=== PATIENT | male | born 1950 | race Caucasian/White ===

== ENCOUNTER → 2020-12-27 09:00 | Outpatient (CLI) | payer BC, SELFPAY ==
--- NOTE | ~2020-12-27 | CT_ITS ---
EXAMINATION: CT sinus wo con DATE: 12/27/2020 09:14 INDICATION: Chronic rhinitis TECHNIQUE: Computed tomography (CT) of the paranasal sinuses was performed without intravenous contra st. The dose-length product was 284.43 mGy-cm. Automated exposure control and iterative reconstructio n technique were employed. COMPARISON: No prior studies for comparison. FINDINGS: There is mild mucosal thickening of the ethmoid sinuses at the ostiomeatal units. Ostiomeat al units are patent. No air-fluid levels. No mucoperiosteal reaction. Mastoids are pneumatized. No si gnificant nasal septal deviation. IMPRESSION: 1. Mild ethmoid sinus disease. Reviewed, dictated and finalized at location B. [employer]
== END ==
PROVIDERS: PCP Family Medicine; Visit Provider Allergy & Immunology
DX: J31.0 Chronic rhinitis (principal); J32.2 Chronic ethmoidal sinusitis
CPT/HCPCS: 70486

== ENCOUNTER → 2022-02-12 12:02 | Outpatient (CLI) | payer BC, SELFPAY ==
--- NOTE | ~2022-02-12 | XR_ITS ---
XR abdomen/kub 1V DATE: 02/12/2022 12:28 INDICATION: Abdominal pain TECHNIQUE: 2 supine AP views COMPARISON: 10/03/2015 KUB 08/30/2015 CT abdomen pelvis FINDINGS: There is a prominent amount of fecal material in the colon, particularly the ascending colo n, hepatic flexure, transverse colon, splenic flexure and descending colon. No apparent bowel obstruc tion. The psoas shadows are intact. No visceromegaly is evident. Chronic a shell calcification left upper quadrant, possibly residual splenic tissue with calcificatio n. Stable since 08/30/2015 CT abdomen examination. Severe degenerative disc disease of the lumbar and lumbosacral spine. Old fracture deformities of the left superior inferior pubic rami. IMPRESSION: Very prominent amount of fecal material in the colon Reviewed, dictated and finalized at Location A. Reviewed, dictated and finalized at location A.
== END ==
PROVIDERS: PCP Family Medicine; Visit Provider Physician Assistant Medical
DX: R10.9 Unspecified abdominal pain (principal)
CPT/HCPCS: 74018

== ENCOUNTER → 2022-02-17 14:18 | Outpatient (CLI) | payer BC, SELFPAY ==
--- NOTE | ~2022-02-17 | CT_ITS ---
EXAMINATION: CT abdomen pelvis wo con DATE: 02/17/2022 14:38 INDICATION: Left flank pain. TECHNIQUE: Computed tomography (CT) of the abdomen and pelvis was performed without intravenous contr ast. Automated exposure control and iterative reconstruction technique were employed. The dose-length product was 759.95 mGy-cm. COMPARISON: CT abdomen and pelvis 08/30/2015 FINDINGS: The visualized portions of the lung bases demonstrate mild atelectasis. Partially visualize d is a chronic 17 mm nodule in right lower lobe, likely benign. Right lung calcifications are consist ent with old granulomatous disease. No pleural effusion. The heart size is normal. There are coronary artery calcifications. No pericardial effusion. The liver is normal. The gallbladder is decompressed . The spleen is absent. A chronic rim-calcified mass in left upper quadrant may be old fat necrosis o r a splenule with old injury. The pancreas, adrenal glands, and right kidney are normal. There is a 4 mm stone in left kidney. There is mild left hydronephrosis and hydroureter. There is a 6 mm stone in proximal left ureter. The prostate is mildly enlarged. There is a left inguinal hernia containing fa t. There are no dilated loops of bowel. The appendix is not visualized. There are no pathologically e nlarged lymph nodes. There is no free intraperitoneal fluid. There are old healed fractures of left s uperior and inferior pubic rami. There is severe lumbar spondylosis. IMPRESSION: 1. 6 mm stone in proximal left ureter with mild left hydronephrosis and proximal hydroureter. 2. Nonobstructing left kidney stone. 3. Left inguinal hernia containing fat. Reviewed, dictated and finalized at location A. IMPRESSION: 1. 6 mm stone in proximal left ureter with mild left hydronephrosis and proxima l hydroureter. 2. Nonobstructing left kidney stone. 3. Left inguinal hernia containing fat.
== END ==
PROVIDERS: PCP Family Medicine; Visit Provider Physician Assistant Medical
DX: N20.2 Calculus of kidney with calculus of ureter (principal); K40.90 Unilateral inguinal hernia, without obstruction or gangrene, not specified as recurrent
CPT/HCPCS: 74176

== ENCOUNTER 2022-02-26 09:54 | Outpatient (CLI) | payer BC, SELFPAY ==
--- NOTE | 2022-02-26 09:30 | ECG_ITS ---
Measurements Intervals [place] Rate: 63 P: 90 MT: 136 QRS: -10 QRSD: 98 T: 39 QT: 378 QTc: 388 Interpretive Statements SINUS RHYTHM NORMAL ECG NO PREVIOUS ECG AVAILABLE FOR COMPARISON Electronically Signed On 02-26-2022 15:54:47 CDT by Praveen Gray M.D.
== END 2022-02-26 09:55 | disposition home or self-care (01) ==
LOC: ANHSURGERY 09:58
PROVIDERS: PCP Family Medicine; Visit Provider Urology
DX: Z01.818 Encounter for other preprocedural examination (principal); N20.0 Calculus of kidney; I10 Essential (primary) hypertension
CPT/HCPCS: 87086; 93005

== ENCOUNTER → 2022-03-01 10:13 | Outpatient (CLI) | payer BC, SELFPAY ==
--- NOTE | ~2022-03-01 | XR_ITS ---
EXAM: XR abdomen/kub 1V HISTORY: Left ureteral stone COMPARISON: CT abdomen and pelvis 02/17/2022. FINDINGS: Left-sided 6 cm stone remains in the left ureter having advanced several centimeters, now at the pelvic brim. The nonobstructing left renal stone is less well seen but likely stable. Chronic left upper quadrant calcification. Multiple pelvic phleboliths. Severe degenerative changes in the isidro mbar spine. IMPRESSION: Slight forward movement of the 6 mm left ureteral stone, now at the pelvic brim. Reviewed, dictated and finalized at location K. IMPRESSION: Slight forward movement of the 6 mm left ureteral stone, now at the pelvic brim .
== END ==
PROVIDERS: PCP Family Medicine; Visit Provider Urology
DX: N20.1 Calculus of ureter (principal)
CPT/HCPCS: 74018

== ENCOUNTER 2022-03-04 00:30 | Day surgery (SDC) | payer BC, SELFPAY ==
[2022-02-25 12:55] VITALS: BMI 28.0
--- NOTE | 2022-02-25 13:20 | PC.NURSE ---
Report to the Outpatient Waiting Room, entrance under the green pavilion located off [facility], at time _0930_ on date _03/04/22_. OR Time: _1130_. - You and your visitor will be asked a series of questions to screen for COVID 19 for your protection. - A mask is required within the hospital. One visitor will be allowed to accompany the patient into the hospital. Patients visitor will be instructed to remain with patient at all times or leave the building. We will allow the visitor to come back to the postoperative area when patient is ready. Preoperative COVID Testing Requirements: NONE Patients may have clear liquids (water, carbonated beverages, clear teas, apple juice) until 3 hours prior to surgery (0830 AM) with a maximum of 20 ounces. - No food from midnight until time of surgery Take the following medications with a SIP of water the morning of surgery: _NASAL SPRAY_ Medications to discontinue per ANESTHESIA __FOLIC ACID, 3 DAYS PRIOR TO SURGERY, Date to take last dose 02/28/22_ Please no deodorant, or body powder the day of surgery. No jewelry (including any body piercings) or valuables the day of surgery, leave them at home. Please take a shower or bath the night before, or the morning of, surgery with an antibacterial soap. Wear comfortable, loose fitting clothing. - Jewelry must be removed prior to entering the operating room. Rings and piercings that are not removed may be cut off. - The hospital will not accept responsibility for valuables. - Please leave all valuables, including medications, at home the day of surgery. If you are going home after surgery, a licensed sprinkler driver must drive you home. - NO public transportation without another adult. - We recommend that an adult stay with you for 24 hours following discharge. - We also recommend that you do not drive, make important decision, drink alcoholic beverages, or take any drugs that were not prescribed by your health care provider for at least 24 hours after your discharge time. Follow any additional instructions given to you from your surgeon. Telephone instructions given to ____PT and asked if any additional questions and then verbalized understanding. Patient advised to call surgeon office or pre surgery nurse liaison [phone] if any additional questions.
[2022-03-04] VITALS (8 sets, daily range): BP systolic 111–150; BP diastolic 56–82; PULSE 57–67; RESP 14–18; TEMP 36.2–36.4; O2SAT 97–100
--- NOTE | ~2022-03-04 | XR_ITS ---
EXAMINATION: XR retrograde pyelo w/stent LT EXAM DATE: 03/04/2022 12:02 INDICATION: Left ureteral stone. TECHNIQUE: Fluoroscopy used during XR retrograde pyelo w/stent LT performed by Dr. Edison whiteside MD, urologist. The radiologist Jason Andrade M.D. dictating this report of the image(s) availabl e was not present for the procedure. Total fluoroscopic time of 25 seconds. The DAP for this proced ure was 0.35 mGym2. A total of 9 images sent to PACS from the exam. Prior study from 2014 was contr alateral side. FINDINGS: Left ureter was cannulated, injected. There is mild left hydroureteronephrosis and bifid r enal pelvis. A double-J ureteral stent was placed. Correlate with procedure note. IMPRESSION: Mild left hydroureteronephrosis. Stent in position. Reviewed, dictated and finalized at location A.
--- NOTE | 2022-03-04 09:10 | WPDHPUPDATE1 ---
History and Physical Update Update Date/Time: 03/04/22 09:10 History and Physical has been reviewed, including an updated exam of the patient. There are NO changes in the patient's condition. Risks, benefits, and alternatives have been discussed and questions answered. Patient agrees to proceed with procedure. Proceed with cystoscopy, left retrograde pyelogram, left ureteroscopy with stone extraction, possible laser and stent placement
[2022-03-04] MEDS: LACTATED RINGERS 1,000 ML 30 ML IV CONT (10:45)
--- NOTE | 2022-03-04 10:48 | SUR.PREOP ---
pt and spouse informed delay in procodure
--- NOTE | 2022-03-04 10:49 | WPDANESEPPF ---
Anes - Initial Pre Proc Eval Procedure: Operation Date: 03/04/22 11:30 Proposed Procedures p Cystoscopy, Left Ureteroscopy, Left Retrograde Pyelogram, Stone Extraction, Left Stent Placement - Edison Bragg MD s Possible Holmium Laser Procedure - Edison Bragg MD Date/Time: 03/04/22 10:49 Surgeon: Edison Bragg MD Pre Op Diagnosis: left renal stone Patient Data Age: 71 Gender: M Height: 1.75 m Weight: 86.36 kg Allergies Allergy/AdvReac Type Severity Reaction Status Date / Time metformin Allergy Intermediate ,drop in Verified 03/04/22 10:29 blood suger morphine Allergy Mild Nausea Verified 03/04/22 10:29 Home Medications Medication Instructions Recorded Confirmed Type coenzyme Q10 100 mg capsule 100 mg PO DAILY 02/16/20 03/04/22 History azelastine 137 mcg (0.1 %) nasal See Rx Instructions .ROUTE 04/01/21 03/04/22 Rx spray aerosol .COMPLEX #90 spray sulfasalazine 500 mg tablet See Rx Instructions .ROUTE 04/01/21 03/04/22 Rx .COMPLEX #360 tablet folic acid 1 mg tablet 1 mg PO DAILY #90 tablet 09/19/21 03/04/22 Rx trazodone 100 mg tablet 200 mg PO .QHS #180 tablet 09/19/21 03/04/22 Rx zolpidem 10 mg tablet 10 mg PO QHS #90 tablet 10/28/21 03/04/22 Rx fluticasone propionate 50 See Rx Instructions .ROUTE 01/28/22 03/04/22 Rx mcg/actuation nasal .COMPLEX #16 milliliter spray,suspension lisinopril 2.5 mg tablet See Rx Instructions .ROUTE 01/28/22 03/04/22 Rx .COMPLEX #90 tablet simvastatin 40 mg tablet See Rx Instructions .ROUTE 01/28/22 03/04/22 Rx .COMPLEX #90 tablet ketoconazole 1 applic TOPICAL BID PRN 02/25/22 03/04/22 History pseudoephedrine-guaifenesin See Rx Instructions .ROUTE 02/25/22 03/04/22 History [Mucinex D] .COMPLEX PRN tamsulosin 0.4 mg capsule 0.4 mg PO DAILY #90 cap 02/27/22 03/04/22 Rx aspirin [Adult Low Dose Aspirin] 81 mg PO DAILY 03/04/22 03/04/22 History Patient hx anesthesia problems: none Family hx anesthesia problems: none Results Review: All pre-operative results and documents have been reviewed as part of the pre-operative evaluation. [facility] Past Medical History Medical History Allergic rhinitis Atherosclerotic heart disease of [place] coronary artery without angina pectoris Chronic ulcerative pancolitis Essential (primary) hypertension Hyperlipidemia, unspecified Kidney stone (~10/23/15) right ureteral calculus 8mm Malignant neoplasm of tongue, unspecified Obesity (BMI 30.0-34.9) Obstructive sleep apnea Overweight (BMI 25.0-29.9) Type 2 diabetes mellitus without complications Vasomotor rhinitis Surgical History Surgical History History of appendectomy History of arthroscopy of shoulder (~2000) History of cataract extraction (~2012) History of colonoscopy (~10/03/10) History of tonsillectomy Family History Family History Father No problems noted. Mother Acute myocardial infarction, Onset Age: 51 Coronary artery disease Social History Social History Smoking packs per day: 1 Smoking cigarettes per day: 20.0 Years smoked: 10 Smoking pack-years: 10.00 Second hand tobacco smoke exposure: No Smoking end date: 11/16/93 Alcohol intake: current Alcohol use details: STATES 23 BEERS/MONTH Substance use: never Substance use type: does not use Living arrangements: with family Gender identity (if verbalized by the patient): Male Spiritual care concerns: No Anes - Eval Final PreProcedure Day of Procedure 03/04/22 10:49 Patient weight: overweight Heart: regular rate and rhythm Lungs: clear to auscultation Airway: Mallampati scale class II Neurological: alert and oriented Last oral intake: >/= 8 hours ASA classification: III Anesthetic plan: procee
[2022-03-04 10:56] LABS: Glucose Point of Care 137 mg/dl (65-105)
[2022-03-04] MEDS: ceFAZolin 2 GM/D5W 50 ML 2 GM/50 ML BAG IVPB (11:18)
--- NOTE | 2022-03-04 12:02 | W.PM.PROC2 ---
Procedure Note - Detailed Date of Procedure 03/04/22 Pre-op Diagnosis left ureteral calculus 7 to 8 mm Post-op Diagnosis Same Procedure Performed Cystoscopy, left retrograde pyelogram, left ureteroscopy with holmium laser, stone extraction, left ureteral stent placement 4.8 Filipino contour Surgeon Edison Bragg MD Anesthesia General Description of Procedure Patient is taken the operative suite correctly identified. Once anesthesia was obtained he was placed in dorsal lithotomy position and prepped and draped usual sterile fashion. Twenty-two Filipino scope inserted in the bladder. There are no tumors noted. Left ureteral orifice was cannulated with a guidewire. We dilated the orifice using an 8/10 dilator. Rigid ureteral scope was then inserted. The stone was visualized was too large to retrieved in 1 piece. Using a 273 micron fiber we used the holmium laser to fragment it into multiple pieces. These were retrieved and sent for analysis. Pyelogram was then performed to confirm placement of the stent in the renal pelvis. A 4.8 Filipino contour stent was then placed with the proximal end in the renal pelvis and the distal in the bladder. Bladder was drained. 2% viscous lidocaine was inserted into the urethra the patient is taken recovery stable condition. He will be discharged home and follow-up week's time stent removal. Drains Yes Packing No Pathology Yes Complications No immediate complications Condition Stable Disposition PACU
[2022-03-04 12:15] LABS: Glucose Point of Care 123 mg/dl (65-105)
[2022-03-04] MEDS: fentaNYL CITRATE INJ (*CRX) 100 MCG/2 ML VIAL 25 MCG IV PUSH ×4 (12:38→13:06)
--- NOTE | 2022-03-04 12:40 | SUR.PHASEI ---
Simple mask removed at 1240.
[2022-03-04] MEDS: oxyCODONE HCL (*CRX) 5 MG TAB IR PO (13:36)
== END 2022-03-04 14:28 | disposition home or self-care (01) ==
PROVIDERS: PCP Family Medicine; Visit Provider Urology
PROC: (CPT 52352; principal; 2022-03-04 11:30)
PROC: (CPT 52356; 2022-03-04 11:30)
DX: N20.1 Calculus of ureter (principal); I25.10 Atherosclerotic heart disease of native coronary artery without angina pectoris; I10 Essential (primary) hypertension; E78.5 Hyperlipidemia, unspecified; G47.33 Obstructive sleep apnea (adult) (pediatric); E11.9 Type 2 diabetes mellitus without complications; Z87.891 Personal history of nicotine dependence
CPT/HCPCS: 52356; 74420; 82365; 82948; 88300; A9270; C1769; C2617; J0690; J2405; J2704; J3010; J7120; Q9966

== ENCOUNTER → 2022-08-11 06:59 | Day surgery (SDC) | payer BC, SELFPAY ==
[2022-08-05 13:32] VITALS: BMI 27.3
--- NOTE | 2022-08-11 08:01 | SUR.PREOP ---
Patient states the Gol[place] made him nauseated and he only drank half. Dr Otero requesting to reschedule. New prep instructions for Miralax were given and phone number of the office to reschedule.
== END ==
PROVIDERS: PCP Family Medicine; Visit Provider Internal Medicine Gastroenterology
DX: R19.5 Other fecal abnormalities (principal); Z53.09 Procedure and treatment not carried out because of other contraindication
CPT/HCPCS: 99211; G0463

== ENCOUNTER 2022-09-15 01:35 | Day surgery (SDC) | payer BC, SELFPAY ==
[2022-09-03 11:12] VITALS: BMI 27.4
[2022-09-15 09:06] VITALS: BP 119/71; PULSE 95; RESP 18; TEMP 36.4; O2SAT 97; BMI 27.2
[2022-09-15] MEDS: LACTATED RINGERS 1,000 ML 150 ML IV CONT (09:14)
--- NOTE | 2022-09-15 09:15 | WPDANESEPPF ---
Anes - Initial Pre Proc Eval Procedure: Operation Date: 09/15/22 10:00 Proposed Procedures p Colonoscopy - Wally Otero MD Date/Time: 09/15/22 09:15 Surgeon: Wally Otero MD Pre Op Diagnosis: positive cologuard Patient Data Age: 72 Gender: M Height: 1.73 m Weight: 81.3 kg Last Vital Signs Temp 36.4 C L 09/15/22 09:06 Pulse 95 09/15/22 09:06 Resp 18 09/15/22 09:06 BP 119/71 09/15/22 09:06 Pulse Ox 97 09/15/22 09:06 O2 Del Method Room Air 09/15/22 09:06 Allergies Allergy/AdvReac Type Severity Reaction Status Date / Time metformin Allergy Intermediate ,drop in Verified 09/15/22 09:04 blood suger morphine Allergy Mild Nausea Verified 09/15/22 09:04 Home Medications Medication Instructions Recorded Confirmed Type coenzyme Q10 100 mg capsule 100 mg PO DAILY 02/16/20 09/03/22 History (CoQ-10) trazodone 100 mg tablet 200 mg PO .QHS #180 tabs 09/19/21 09/03/22 Rx tamsulosin 0.4 mg capsule (Flomax) 0.4 mg PO DAILY #90 caps 02/27/22 09/03/22 Rx aspirin 81 mg tablet 81 mg PO DAILY 03/04/22 09/03/22 History zolpidem 10 mg tablet 10 mg PO QHS #90 tabs 04/28/22 09/03/22 Rx azelastine 137 mcg (0.1 %) nasal 1 - 2 spray intranasal Q12H 09/03/22 09/03/22 History spray aerosol fluticasone propionate 50 2 spray intranasal BID 09/03/22 09/15/22 History mcg/actuation nasal spray,suspension ketoconazole 2 % topical cream 1 applic topical BID PRN ALTHETES 09/03/22 09/03/22 History FOOT lisinopril 2.5 mg tablet 2.5 mg PO DAILY 09/03/22 09/03/22 History simvastatin 40 mg tablet 40 mg PO DAILY 09/03/22 09/03/22 History sulfasalazine 500 mg tablet 500 mg PO Q6H 09/03/22 09/03/22 History terbinafine HCl 250 mg tablet 250 mg PO DAILY 09/03/22 09/03/22 History folic acid 1 mg tablet 1 mg PO DAILY #90 tabs 09/12/22 09/15/22 Rx Patient hx anesthesia problems: none Family hx anesthesia problems: none Results Review: All pre-operative results and documents have been reviewed as part of the pre-operative evaluation. [facility] Past Medical History Medical History Allergic rhinitis Atherosclerotic heart disease of [place] coronary artery without angina pectoris Chronic ulcerative pancolitis Essential (primary) hypertension Hyperlipidemia, unspecified Kidney stone (~10/23/15) right ureteral calculus 8mm Malignant neoplasm of tongue, unspecified Obesity (BMI 30.0-34.9) Obstructive sleep apnea Overweight (BMI 25.0-29.9) Type 2 diabetes mellitus without complications Ureteral stone Vasomotor rhinitis Surgical History Surgical History History of appendectomy History of arthroscopy of shoulder (~2000) History of cataract extraction (~2012) History of colonoscopy (~10/03/10) History of extraction of renal calculus History of tonsillectomy Family History Family History Father No problems noted. Mother Acute myocardial infarction, Onset Age: 51 Coronary artery disease Social History Social History Smoking packs per day: 1 Smoking cigarettes per day: 20.0 Years smoked: 10 Smoking pack-years: 10.00 Smoking status: Former smoker Tobacco type: cigarettes Second hand tobacco smoke exposure: No Smoking end date: 11/16/93 Alcohol intake: current Drinks per week: 7 Alcohol use details: STATES 23 BEERS/MONTH Substance use: never Substance use type: does not use Living arrangements: with family Additional living arrangements comments: with sp Gender identity (if verbalized by the patient): Male Spiritual care concerns: No Anes - Eval Final PreProcedure Day of Procedure 09/15/22 09:15 Patient weight: overweight Heart: regular rate and rhythm Lungs: clear to auscultation Airway: Mallampati scale class
--- NOTE | 2022-09-15 09:48 | PM.HPGS ---
History of Present Illness History of Present Illness Consent: Risks, benefits, and alternatives have been discussed and questions answered. Patient agrees to proceed with procedure. Chief complaint: positive cologuard Narrative: Randal Madison is a 72 year old male Presents for colonoscopy. Patient apparently found a positive Cologuard test. . Patient gives a history of previous colonoscopy [address] Rosa Lawson at [facility] 5 years ago. This was apparently limited by poor preparation. Patient reports he attempted colonoscopy several months ago but this was also unsuccessful. He presents today for colonoscopy having attempted a MiraLax prep. Patient denies any blood in his stools. He reports many years ago had colon polyps. These apparently were found by colonoscopy bleeding currently denies any bleeding. He has no pain. Denies any abnormalities to his bowel habits. Review of Systems Review of Systems: Review of systems noncontributory. [facility] Past Medical History Medical History Allergic rhinitis Atherosclerotic heart disease of [place] coronary artery without angina pectoris Chronic ulcerative pancolitis Essential (primary) hypertension Hyperlipidemia, unspecified Kidney stone (~10/23/15) right ureteral calculus 8mm Malignant neoplasm of tongue, unspecified Obesity (BMI 30.0-34.9) Obstructive sleep apnea Overweight (BMI 25.0-29.9) Type 2 diabetes mellitus without complications Ureteral stone Vasomotor rhinitis Surgical History Surgical History History of appendectomy History of arthroscopy of shoulder (~2000) History of cataract extraction (~2012) History of colonoscopy (~10/03/10) History of extraction of renal calculus History of tonsillectomy Family History Family History Father No problems noted. Mother Acute myocardial infarction, Onset Age: 51 Coronary artery disease Social History Social History Smoking packs per day: 1 Smoking cigarettes per day: 20.0 Years smoked: 10 Smoking pack-years: 10.00 Smoking status: Former smoker Tobacco type: cigarettes Second hand tobacco smoke exposure: No Smoking end date: 11/16/93 Alcohol intake: current Drinks per week: 7 Alcohol use details: STATES 23 BEERS/MONTH Substance use: never Substance use type: does not use Living arrangements: with family Additional living arrangements comments: with sp Gender identity (if verbalized by the patient): Male Spiritual care concerns: No Meds Home Medications and Allergies Home Medications Medication Instructions Recorded Confirmed Type coenzyme Q10 100 mg capsule 100 mg PO DAILY 02/16/20 09/03/22 History (CoQ-10) trazodone 100 mg tablet 200 mg PO .QHS #180 tabs 09/19/21 09/03/22 Rx tamsulosin 0.4 mg capsule (Flomax) 0.4 mg PO DAILY #90 caps 02/27/22 09/03/22 Rx aspirin 81 mg tablet 81 mg PO DAILY 03/04/22 09/03/22 History zolpidem 10 mg tablet 10 mg PO QHS #90 tabs 04/28/22 09/03/22 Rx azelastine 137 mcg (0.1 %) nasal 1 - 2 spray intranasal Q12H 09/03/22 09/03/22 History spray aerosol fluticasone propionate 50 2 spray intranasal BID 09/03/22 09/15/22 History mcg/actuation nasal spray,suspension ketoconazole 2 % topical cream 1 applic topical BID PRN ALTHETES 09/03/22 09/03/22 History FOOT lisinopril 2.5 mg tablet 2.5 mg PO DAILY 09/03/22 09/03/22 History simvastatin 40 mg tablet 40 mg PO DAILY 09/03/22 09/03/22 History sulfasalazine 500 mg tablet 500 mg PO Q6H 09/03/22 09/03/22 History terbinafine HCl 250 mg tablet 250 mg PO DAILY 09/03/22 09/03/22 History folic acid 1 mg tablet 1 mg PO DAILY #90 tabs 09/12/22 09/15/22 Rx Allergies Allergy/AdvReac Type Severity Reaction Status Date / Time metformin Allergy Intermedi
[2022-09-15 10:26] VITALS: BP 105/65; PULSE 76; RESP 19; O2SAT 95
[2022-09-15 10:36] VITALS: BP 122/78; PULSE 74; RESP 18; O2SAT 98
[2022-09-15 10:46] VITALS: BP 129/80; PULSE 76; RESP 19; O2SAT 98
== END 2022-09-15 10:56 | disposition home or self-care (01) ==
PROVIDERS: PCP Family Medicine; Visit Provider Internal Medicine Gastroenterology
PROC: 0DJD8ZZ Inspection of Lower Intestinal Tract, Via Natural or Artificial Opening Endoscopic (ICD-10-PCS; CPT 45378; principal; 2022-09-15 10:00)
DX: K51.00 Ulcerative (chronic) pancolitis without complications (principal); K64.8 Other hemorrhoids; K63.89 Other specified diseases of intestine; I10 Essential (primary) hypertension; E78.5 Hyperlipidemia, unspecified; E11.9 Type 2 diabetes mellitus without complications; G47.33 Obstructive sleep apnea (adult) (pediatric); I25.10 Atherosclerotic heart disease of native coronary artery without angina pectoris; Z87.891 Personal history of nicotine dependence; Z79.82 Long term (current) use of aspirin
CPT/HCPCS: 45380; 88305; J2704; J7120

== ENCOUNTER 2023-02-02 10:40 | Outpatient (CLI) | payer BC, SELFPAY ==
--- NOTE | ~2023-02-02 | US_ITS ---
Renal-Bladder ultrasound Clinical History: Nephrolithiasis Technique: Real-time sonographic imaging of the kidneys and urinary bladder was performed. Findings: The right kidney measures 12.2 cm in length and the left kidney measures 13.9 cm. No hydron ephrosis. Possible 7 mm nonobstructing left renal stone. Renal cortical echogenicity is within normal limits. No renal mass lesion is identified. The urinary bladder is moderately distended at the time of this exam. No intraluminal echoes are iden tified. No abnormal wall thickening is seen. Prostate gland is enlarged. Impression: No hydronephrosis. Possible 7 mm nonobstructing left renal stone. Enlarged prostate gland. Reviewed, dictated and finalized at location . Impression: No hydronephrosis. Possible 7 mm nonobstructing left renal stone. Enlarged prostate gland.
== END 2023-02-02 10:41 | disposition home or self-care (01) ==
PROVIDERS: PCP Family Medicine; Visit Provider Nurse Practitioner
DX: N20.0 Calculus of kidney (principal); N40.0 Benign prostatic hyperplasia without lower urinary tract symptoms
CPT/HCPCS: 76775

== ENCOUNTER 2023-02-09 08:25 | Outpatient (CLI) | payer BC, SELFPAY ==
--- NOTE | 2023-02-27 18:34 | WPDHOMESLEEP ---
Sleep Study - Home Unattended Date of Study: 02/09/23 Ordering Provider: Jaleel Pal Interpreting Provider: Lilo Sanabria, DO Home Sleep Study Type: Apnea Link Air Height: 1.75 m Weight: 81.647 kg Body Mass Index: 26.6 Neck Circumference (inches): 15 [place]: 11 Reason for Sleep Study Loud snoring Sleep History The patient is a 72-year-old male with previously diagnosed GABRIEL, history of head and neck cancer s/p chemoradiation therapy and history of UPPP that had a sleep study ordered by his ENT physician for evaluation of sleep apnea. The patient had a polysomnogram on October 18, 2018 that showed an overall AHI of 58.2. He is interested in the Inspire device. The patient rarely awakens from sleep short of breath. He denies awakening at night with heartburn, belching or cough. He constantly snores and is constantly loud enough that others complain. He constantly has trouble sleeping when he has a cold. He denies suddenly waking up gasping for air throughout the night. He constantly has breathing problems at night observed by himself or others. He denies sweating excessively at night. He denies having heart palpitations or irregular heartbeats during the night. He occasionally falls asleep during the day but never while driving. He denies sleep paralysis and cataplexy. He frequently has trouble at school or work due to sleepiness. He rarely experiences vivid dreamlike scenes upon awakening or falling asleep. He denies feeling afraid of going to sleep. He rarely has nightmares. He occasionally remembers his dreams. He occasionally has thoughts racing through his mind. He denies feeling sad, depressed or anxious. He denies having muscular tension. He denies noticing parts of his body jerk. He denies kicking during the night. He occasionally has leg pain during the night. He denies grinding his teeth during sleep and denies awakening with morning jaw pain. He denies being bothered by pain during the day and denies being awakened by pain during the night. He denies waking up feeling stiff in the morning. He occasionally wakes up with sore or achy muscles. He rarely wakes up with pain in the neck, spine or other joints. He goes to bed at 10:30 p.m. on both weekdays and weekends. He wakes up 2-3 times doubt the night to urinate and is able to fall asleep within a few minutes. He wakes up at 8:30 a.m. on both weekdays and weekends. He typically gets 8-10 hours of sleep per night. He will stay in bed for 10-15 minutes after waking up in the morning. He currently lives with his and 4 children. He does not consume any caffeinated beverages within 2 hours of bedtime. He will occasionally read before falling asleep. He will occasionally take naps in the afternoon or the evening and they are refreshing. He consumes 1 caffeinated beverage per day. He consumes 1 alcoholic beverage per day. He quit smoking cigarettes 10 years ago. He denies recreational drug use. [facility] Past Medical History Medical History Allergic rhinitis Atherosclerotic heart disease of [place] coronary artery without angina pectoris Chronic ulcerative pancolitis Essential (primary) hypertension Hyperlipidemia, unspecified Kidney stone (~10/23/15) right ureteral calculus 8mm Malignant neoplasm of tongue, unspecified Obesity (BMI 30.0-34.9) Obstructive sleep apnea Overweight (BMI 25.0-29.9) Type 2 diabetes mellitus without complications Ureteral stone Vasomotor rhinitis Surgical History Surgical History History of appendectomy History of arthroscopy of shoulder (~2000) History of cataract extraction (~2012) History of colonoscopy (~10/03/10) History of extraction of renal calculus History of tonsillectomy Family History Family History Father No prob
[2023-02-27 18:43] VITALS: BMI 26.6
== END 2023-02-11 13:03 | disposition home or self-care (01) ==
LOC: ANHCSM 08:25
PROVIDERS: PCP Family Medicine
DX: G47.33 Obstructive sleep apnea (adult) (pediatric) (principal); E78.5 Hyperlipidemia, unspecified; I10 Essential (primary) hypertension; E11.9 Type 2 diabetes mellitus without complications; Z87.891 Personal history of nicotine dependence
CPT/HCPCS: 95806

== ENCOUNTER 2023-03-05 15:51 | Outpatient (CLI) | payer BC, SELFPAY ==
--- NOTE | ~2023-03-05 | XR_ITS ---
XR abdomen/kub 1V 03/05/2023 16:06 Indication: Left renal stone Procedure: KUB Comparison: Comparison to multiple prior studies sequentially, with oldest reviewed study dated 08/18. Findings: Severe lumbar spondylosis. Nonobstructive bowel gas pattern. Large amount of retained fecal material throughout the colon. There are pelvic phleboliths. Kidneys are obscured by bowel content l imiting evaluation for renal stones. There pelvic phleboliths and vascular calcifications. Impression: 1: Fecal impaction of the colon. No definite renal/ureteral stones. Consider correlation with CT. Reviewed, dictated and finalized at location A. Impression: 1: Fecal impaction of the colon. No definite renal/ureteral stones. Consider co rrelation with CT.
== END 2023-03-05 15:52 | disposition home or self-care (01) ==
LOC: ANHIMG 15:52
PROVIDERS: PCP Family Medicine; Visit Provider Nurse Practitioner Adult Health
DX: N20.0 Calculus of kidney (principal); K56.41 Fecal impaction
CPT/HCPCS: 74018

== ENCOUNTER → 2023-07-17 11:07 | Outpatient (CLI) | payer BC, SELFPAY ==
--- NOTE | ~2023-07-17 | XR_ITS ---
Right Shoulder Technique: AP and axillary views were obtained. Clinical History: Pain Findings: No fracture or dislocation is seen. Osseous alignment is anatomic. There is minimal degener ative change of the glenohumeral joint and acromioclavicular joint. Soft tissues are unremarkable. Ne urostimulator device noted. Impression: Minimal degenerative changes, as above. Reviewed, dictated and finalized at location . Impression: Minimal degenerative changes, as above.
== END ==
PROVIDERS: PCP Family Medicine; Visit Provider Nurse Practitioner Family
DX: M19.011 Primary osteoarthritis, right shoulder (principal)
CPT/HCPCS: 73030

== ENCOUNTER 2023-07-27 14:25 | Outpatient (RCR) | payer BC, SELFPAY ==
--- NOTE | 2023-07-27 16:44 | PTOPEVAL1 ---
Assessment and note entered by Marciano Mead, PT, DPT Evaluation Information Assessment Status Evaluation Diagnosis R shoulder pain Onset 3 months Subjective Information Pt reports 3 month during of shoulder pain without a VALERY. He states his pain has gotten progressively worse over the last few months. He states it often snaps and pops. He states lifting and carrying things are difficult. He states he will wake up in the night d/t his shoulder pain. Reported Pain Level Pain Score 2: Self Report Assessment PT Clinical Summary Randal presents to therapy today for his initial evaluation with a diagnosis of R shoulder pain. Today he demonstrates great amado shoulder ROM and great shoulder active ROM that is symmetrical and pain free. He demonstrates significant rounded shoulder with a forward head. He reports his pain is relieved when he sits in an upright posture. He was instructed today in a HEP and educated on proper sitting posture and lifting mechanics. He choose to do his HEP IND for a month and then follow up with the clinic if needed. Plan of Care Interventions Electrical Stimulation,Hot Pack/Cold Pack,Manual Therapy,Neuro Re-education,Patient/Caregiver Educati,Therapeutic Activities,Therapeutic Exercise PT Services Indicated Yes Treatment Frequency and follow up in one month if needed Duration These treatments will address the objective and functional deficits as defined above. The patient will be advanced safely and appropriately in order for the patient to progress towards his/her prior level of function. Additional exercises will be introduced and as well as a comprehensive home exercise program upon discharge, if needed, ?to ensure carryover of functional gains achieved in the clinic. This treatment plan has been reviewed and agreement upon by the patient.
--- NOTE | 2023-08-24 14:54 | PCPTNOTE ---
Patient did not show up for scheduled appointment this date.
--- NOTE | 2023-08-24 14:54 | PCPTNOTE ---
Patient did not show up for scheduled appointment this date. Called and left voicemail for pt to follow up.
--- NOTE | 2023-09-16 11:45 | PTOPDC ---
Assessment and note entered by Marciano Mead, PT, DPT Evaluation Information Assessment Status Discharge - Pt Not Present Diagnosis R shoulder pain Onset 3 months Subjective Information Pt did not show up to follow up appointment scheduled for 08/24. Called and LVM for pt will follow up instructions to reschedule if needed. Have not heard from pt since. Assessment PT Clinical Summary Randal was evaluated on 07/27/23 and did not complete any subsequent treatments. He will be discharged at this time. If he needs additional therapy at a later date he will need a new order.
== END 2023-09-17 10:29 | disposition home or self-care (01) ==
LOC: ANHGOSHPT 14:25
PROVIDERS: PCP Family Medicine; Visit Provider Nurse Practitioner Family
DX: M25.511 Pain in right shoulder (principal)
CPT/HCPCS: 97110; 97161; 97530; 99199

== ENCOUNTER → 2023-10-14 10:35 | Outpatient (CLI) | payer BC, SELFPAY ==
--- NOTE | ~2023-10-14 | XR_ITS ---
AP lateral views of the right hip, and AP view of the pelvis Clinical history: Pain Findings: No acute fracture or dislocation is seen. Probable chronic fracture deformities of the left pubic rami. Osseous alignment is anatomic. Hip joints are preserved. Soft tissues are unremarkable. Impression: Degenerative spondylosis of the lumbar spine No acute abnormality. Chronic fracture deformity of the left superior and inferior pubic rami. Reviewed, dictated and finalized at location . FIELD MANAGER Impression: Degenerative spondylosis of the lumbar spine No acute abnormality. Chronic fracture deformity of the left superior and inferior pubic rami.
== END ==
PROVIDERS: PCP Family Medicine; Visit Provider Nurse Practitioner Family
DX: M25.551 Pain in right hip (principal)
CPT/HCPCS: 73502

== ENCOUNTER 2024-01-02 10:28 | Emergency (ER) | payer BC, SELFPAY ==
[2024-01-02 10:41] VITALS: BP 140/69; PULSE 87; RESP 16; TEMP 36.1; O2SAT 96
--- NOTE | 2024-01-02 11:19 | ED.URI ---
HPI - URI/Sore Throat General Chief Complaint: Upper Respiratory Infection Stated Complaint: Shortness of Breath;Cough Time Seen by Provider: 01/02/24 11:11 Source: patient and RN notes reviewed Mode of arrival: ambulatory Limitations: no limitations History of Present Illness HPI Narrative: Patient presents today complaining of productive cough times 10 days with nasal congestion and rhinorrhea. States his told him that he was gasping last night while he was sleeping. Denies any shortness of breath while awake. Reports some fatigue today. He has been trying [id number]-syj-zpslsck cough medicine, nasal spray, and a sinus rinse with mild relief. No history of asthma or COPD. No fever during this illness. He is a nonsmoker. He does have sleep apnea and has the implanted Inspire system instead of a CPAP. Related Data Home Medications Medication Instructions Recorded Confirmed coenzyme Q10 100 mg capsule 100 mg PO DAILY 02/16/20 07/14/23 (CoQ-10) aspirin 81 mg tablet 81 mg PO DAILY 03/04/22 07/14/23 terbinafine HCl 250 mg tablet 250 mg PO DAILY 09/03/22 07/14/23 vibegron 75 mg tablet (Gemtesa) mg PO 05/07/23 07/14/23 folic acid 1 mg tablet 01/02/24 01/02/24 solifenacin 5 mg tablet mg PO 01/02/24 Allergies Allergy/AdvReac Type Severity Reaction Status Date / Time metformin Allergy Intermediate ,drop in Verified 01/02/24 11:15 blood suger morphine Allergy Mild Nausea Verified 01/02/24 11:15 Review of Systems Review of Systems: CONSTITUTIONAL: Denies body aches, fever, chills, or sweats.+ fatigue EYES: Denies visual changes, redness, or discharge. ENT: Denies sore throat, or otalgia.+ rhinorrhea, congestion CARDIOVASCULAR: Denies chest pain, palpitations, or edema. RESPIRATORY: Denies dyspnea.+ cough GASTROINTESTINAL: Denies abdominal pain, nausea, vomiting, or diarrhea. GENITOURINARY: Denies dysuria or hematuria. SKIN: Denies rash, itching, or wounds. MUSCULOSKELETAL: Denies back pain, joint pain, or myalgia. NEUROLOGIC: Denies headache, numbness, tingling, or weakness. PSYCH: Denies depression or anxiety. [facility] Past Medical History Medical History Allergic rhinitis Atherosclerotic heart disease of [place] coronary artery without angina pectoris Chronic ulcerative pancolitis Essential (primary) hypertension Hyperlipidemia, unspecified Kidney stone (~10/23/15) right ureteral calculus 8mm Malignant neoplasm of tongue, unspecified Obesity (BMI 30.0-34.9) Obstructive sleep apnea Overweight (BMI 25.0-29.9) Splenic atrophy Type 2 diabetes mellitus without complications Ureteral stone Vasomotor rhinitis Surgical History Surgical History History of appendectomy History of arthroscopy of shoulder (~2000) History of cataract extraction (~2012) History of colonoscopy (~10/03/10) History of extraction of renal calculus History of tonsillectomy Family History Family History Father No problems noted. Mother Acute myocardial infarction, Onset Age: 51 Coronary artery disease Social History Social History Smoking packs per day: 1 Smoking cigarettes per day: 20.0 Years smoked: 10 Smoking pack-years: 10.00 Smoking status: Former smoker Tobacco type: cigarettes Second hand tobacco smoke exposure: No Smoking end date: 11/16/93 Alcohol intake: current Drinks per week: 7 Alcohol use details: STATES 23 BEERS/MONTH Substance use: never Substance use type: does not use Lack of Transportation: No Lack of Food: Never True Current Housing: I Have Housing Concerned About Future Housing: No Difficulty Paying Gas/Electric Bills: No Difficulty Paying for Meds: No Currently Unemployed: No Education: Associ
== END 2024-01-02 11:25 | disposition home or self-care (01) ==
PROVIDERS: Emergency Provider Nurse Practitioner; PCP Family Medicine
DX: J40 Bronchitis, not specified as acute or chronic (principal); Z87.891 Personal history of nicotine dependence; I25.10 Atherosclerotic heart disease of native coronary artery without angina pectoris; I10 Essential (primary) hypertension; E78.5 Hyperlipidemia, unspecified; E66.9 Obesity, unspecified; Z68.29 Body mass index [BMI] 29.0-29.9, adult; E11.9 Type 2 diabetes mellitus without complications; Z85.810 Personal history of malignant neoplasm of tongue; Z79.82 Long term (current) use of aspirin
CPT/HCPCS: 99213; G0463

== ENCOUNTER 2024-05-05 12:50 | Outpatient (CLI) | payer BC, SELFPAY ==
--- NOTE | ~2024-05-05 | XR_ITS ---
XR abdomen/kub 1V Ordering provider: Lesvia Persaud PA-C History: . LEFT RENAL STONE . Comparison: None. FINDINGS: BOWEL: Nonobstructive bowel gas pattern. ORGANOMEGALY: None. SIGNIFICANT PATHOLOGIC CALCIFICATIONS: None. OTHER: Calcification in the area of the splenic artery. Aneurysm is possible. No free air is seen under the diaphragm. Degenerative changes of the spine. Old healed fracture of the left pubic bone. IMPRESSION: NO ACUTE ABDOMINAL FINDINGS. Reviewed, dictated and finalized at location A.
== END 2024-05-05 12:51 | disposition home or self-care (01) ==
PROVIDERS: PCP Family Medicine; Visit Provider Physician Assistant
DX: N20.0 Calculus of kidney (principal)
CPT/HCPCS: 74018

== ENCOUNTER 2024-06-22 14:14 | Outpatient (CLI) | payer BC, SELFPAY ==
--- NOTE | 2024-06-22 14:25 | ECHO_ITS ---
Patient Info Name: Randal Madison Age: 73 years : 1950 Gender: Male Ht: 68 in Wt: 180 lbs BSA: 2.00 m2 HR: 75 bpm BP: 148 / 95 mmHg Heart Rhythm: Sinus Rhythm Technical Quality: Good Exam Date: 06/22/2024 2:57 PM Exam Location: Echo Lab Patient Status: Outpatient Admit Date: 06/22/2024 Staff Ordering Physician: Michael Freed MD Nut Roaster: Gen Mendoza RDCS Attending Provider: Michael Freed MD Referring Physician: Lourdes MALDONADO; Exam Type: CA echo doppler color flow Study Info Indications - MURMUR Complete two-dimensional, color flow and Doppler transthoracic echocardiogram is performed. Summary 1. Complete two-dimensional, color flow and Doppler transthoracic echocardiogram is performed. 2. Left ventricular chamber dimension is normal. 3. Left ventricular systolic function is normal, estimated at 60-65%. 4. The left ventricular diastolic function is grade I diastolic dysfunction. 5. E/e' 11 is mildly elevated. 6. There is mild aortic valve sclerosis. 7. There is mild tricuspid valve regurgitation. 8. Mild pulmonary hypertension, estimated pulmonary arterial systolic pressure is 42 mmHg. 9. There is mild pulmonic regurgitation. 10. Dilated inferior vena cava with >50% collapse upon inspiration consistent with elevated right atrial pressure, 10 mmHg. Left Ventricle E/e' 11 is mildly elevated. Left ventricular chamber dimension is normal. Left ventricular systolic function is normal, estimated at 60-65%. The left ventricular diastolic function is grade I diastolic dysfunction. Right Ventricle Right ventricular systolic function is normal and with normal TAPSE 3.3 cm. Right ventricular chamber dimension is normal. Left Atria Left atrial chamber dimension is normal. Right Atria Right atrial chamber dimension is normal. Aortic Valve The aortic valve is trileaflet. There is mild aortic valve sclerosis. There is no aortic valve stenosis. There is no aortic valve regurgitation. Pulmonic Valve There is mild pulmonic regurgitation. Mitral Valve There is no mitral valve stenosis. There is no mitral valve regurgitation. Tricuspid Valve There is mild tricuspid valve regurgitation. Mild pulmonary hypertension, estimated pulmonary arterial systolic pressure is 42 mmHg. Pericardium/Pleural There is no pericardial effusion. Inferior Vena Cava Dilated inferior vena cava with >50% collapse upon inspiration consistent with elevated right atrial pressure, 10 mmHg. Aorta The aortic root size at the sinus of Valsalva is normal. Left Ventricular Outflow Tract Name Value Normal LVOT 2D LVOT Diameter 2.1 cm LVOT Doppler LVOT Peak Gradient 4 mmHg LVOT Mean Gradient 2 mmHg LVOT VTI 23 cm LVOT VTI/AV VTI Ratio 0.7 LVOT Stroke Volume 78 ml LVOT CO 5.0 l/min LVOT CI 2.5 l/min/m2 Pulmonic Valve Name Value Normal
== END 2024-06-22 14:15 | disposition home or self-care (01) ==
LOC: ANHCARD 14:15
PROVIDERS: PCP Family Medicine; Visit Provider Family Medicine
DX: I35.8 Other nonrheumatic aortic valve disorders (principal); I36.1 Nonrheumatic tricuspid (valve) insufficiency; I37.1 Nonrheumatic pulmonary valve insufficiency; I11.9 Hypertensive heart disease without heart failure
CPT/HCPCS: 93306

== ENCOUNTER 2025-08-10 11:00 | Outpatient (RCR) | payer BC, SELFPAY ==
--- NOTE | 2025-06-23 11:33 | OPREHPOC ---
Outpatient Therapy Plan of Care This is a Multidisciplinary Plan of Care that may contain components documented by all disciplines (PT, OT, and ST.) PT Problem 1 PT Problem #1 Knowledge Deficit PT Goal 1 Goal / Goal Update 1. Patient to demonstrate independence with HEP for improved self-reliance of symptom management. PT Problem 2 PT Problem #2 Pain PT Goal 1 Goal / Goal Update 1. Patient to decrease subjective reports of pain to <4/10 for improved ADL tolerance. 2. Pt will report no episodes of jaw locking caused by neck tightness for 1 consecutive month Target Visit 10 PT Problem 3 PT Problem #3 Impaired Functional Mobility PT Goal 1 Goal / Goal Update 1. Patient to demonstrate a decreased resting forward head posture of for normalized cervical posture to decrease the strain of upper quadrant musculature. 2. Pt will report a decreased of falling forward sensation when walking by improving posture and gait mechanics. Target Visit 10 PT Problem 4 PT Problem #4 Impaired Range of Motion PT Goal 1 Goal / Goal Update 1. Patient to demonstrate an increase of cervical rotation and side bending AROM to to improve safety with driving. Target Visit 10
--- NOTE | 2025-06-23 11:33 | PTOPEVAL1 ---
Assessment and note entered by Gurvinder Healy PT Evaluation Information Assessment Status Evaluation Diagnosis Neck pain with episodic jaw locking ICD-10 Condition Codes (PT) Cervicalgia M54.2 Onset January 2025 Subjective Information Pt reports a history of neck pain, he notes the muscle feel tight and has instances where it got so tight it felt like his jaw locked up and he had to stretch his neck out for it to loosen. The most recent episode of this was about 2 weeks. Pt was seen for a neurosurgery consult and CT was performed due to pts history of cancer. Imaging shows degenerative changes and spinal stenosis in cervical spine. Pt denies any notable weakness, numbness tingling or any other red flag symptoms. 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 Pt is primarily concern with his increased pain, limited ROM, and episodes of his jaw locking up. Reported Pain Level Pain Score 4: Self Report Assessment PT Clinical Summary Patient presents to physical therapy with a primary issue of neck pain causing episodic jaw locking since january 2025. Patient has a history of cancer and lymph node rupture in neck that appears to caused soft tissue contractures of anterior lateral neck musculature. Additionally imaging shows degenerative change and OA throughout cervical spine. Patient demonstrates cervical and scapular weakness, increased pain up to 10/10, decreased mobility, abnormal posture , and decreased flexibility that limit their ability to perform activities of daily living and functional movements. Patient will benefit from skilled physical therapy to address the above listed deficits and return to prior level of function. Home exercise program instructed and written handout provided, exercises tolerated well with no adverse effects to note post-session. Patient was educated on importance of adherence to home exercise program. Patient was also educated on anatomy, prognosis, home modalities, and plan of care. Plan of Care Interventions Hot Pack/Cold Pack,Manual Therapy,Mechanical Traction,Neuro Re-education,Therapeutic Activities ,Therapeutic Exercise,Other PT Services Indicated Yes Treatment Frequency and 1-2x week for 10 visits Duration These treatments will address the objective and functional deficits as defined above. The patient will be advanced safely and appropriately in order for the patient to progress towards his/her prior level of function. Additional exercises will be introduced and as well as a comprehensive home exercise program upon discharge, if needed, ?to ensure carryover of functional gains achieved in the clinic. This treatment plan has been reviewed and agreement upon by the patient.
--- NOTE | 2025-08-10 11:45 | PTOPDC ---
Assessment and note entered by Gurvinder Healy PT Evaluation Information Assessment Status Discharge Diagnosis Neck pain with episodic jaw locking ICD-10 Condition Codes (PT) Cervicalgia M54.2 Onset January 2025 Subjective Information Pt states he feels he feels 85% overall. He notes he has better motion less pain and no episodes of his jaw locking up. Pt states he still has some R sided neck pain that lets him know its still there every once in awhile. Pt states he feels currently he has no limitations with his work and daily activities. Reported Pain Level Pain Score 2: Self Report Assessment PT Clinical Summary Patient's condition of neck pain that radiated to his jaw has improved overall as evidenced by advancements in decreased symptoms and increased cervical mobility. Patient has met most therapy goals and is pleased with progress made towards the remaining goals. Patient to discharge from physical therapy this date and continue with updated home exercise program as instructed. Patient to contact physical therapist or primary care provider if questions or concerns arise. Plan of Care PT Services Indicated No
== END 2025-08-10 16:18 | disposition home or self-care (01) ==
LOC: ANHGOSHPT 11:00
PROVIDERS: PCP Family Medicine
DX: M54.2 Cervicalgia (principal); A35 Other tetanus
CPT/HCPCS: 97110; 97112; 97140; 97161